=== PATIENT | male | born 1975 | race Caucasian/White ===

== ENCOUNTER 2017-11-21 16:24 | Emergency (ER) | payer OTHER ==
[~2017-11-21] VITALS: Ht 193 cm; Wt 79.4 kg
[2017-11-21 16:53] LABS: ABSOLUTE MONOCYTES 0.3 thou/uL (0.0-1.2); ABSOLUTE NEUTROPHILS 5.4 thou/uL (1.6-8.1); BASOPHILS 0.5 %; EOSINOPHILS 0.2 %; HEMATOCRIT 44.5 % (42.0-52.0); LYMPHOCYTES 14.9 %; MCH 29.8 pg (26.0-34.0); MCHC 33.7 g/dL (28.0-37.0); MCV 88.4 fL (80.0-100.0); MONOCYTES 4.9 %; MPV 8.1 fl. (7.2-11.1); NUCLEATED RBCS 0 /100WBC; PLATELET COUNT* 214 thou/uL (150-400); POLYS 79.5 %; RBC 5.03 mil/uL (4.50-6.00); RDW-CV 13.7 % (10.5-14.5); WBC 6.8 thou/uL (4.0-11.0)
[2017-11-21 16:59] LABS: CALCIUM 9.2 mg/dL (8.5-10.1); POTASSIUM 3.3 mmol/L (3.5-5.1)
[2017-11-21 17:11] LABS: TOTAL BILIRUBIN 2.1 mg/dL (<0.1-1.0); TOTAL PROTEIN 7.1 g/dL (6.4-8.2)
[2017-11-21 17:22] LABS: BE 1.4 mmol/L (-2 to +3); PCO2 VENOUS 36.7 mmHg (41.0-51.0)
[2017-11-21 17:23] LABS: PO2 VENOUS 37.3 mmHg (35.0-45.0)
[2017-11-21] MEDS ORDERED: XANAX 0.5 MG0.5 M1 PO (18:53)
[2017-11-21 19:17] VITALS: BP 118/67
--- NOTE | 2017-11-22 10:28 | EKG ---
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[place] : 1975 Requested By: Rachael Zapata Order Number: [id number] MD: Steve Vicente Measurements Intervals [place] Rate: 62 P: 76 NE: 183 QRS: 86 QRSD: 118 T: 63 QT: 428 QTc: 435 Interpretive Statements Sinus rhythm Probable left atrial enlargement Incomplete right bundle branch block No previous ECG available for comparison Electronically Signed On 11-22-2017 10:28:45 CDT by Steve Vicente [email or web address] <ELECTRONICALLY SIGNED> By: Steve Vicente MD, [facility] 11/22/17 1028 1641 1641 Steve Vicente MD, FACC /EPI
== END 2017-11-21 19:17 | disposition home or self-care (01) ==
LOC: M.ERS 16:24
PROVIDERS: Nurse Practitioner Family
DX: F41.9 Anxiety disorder, unspecified (principal); R42 Dizziness and giddiness; Z88.1 Allergy status to other antibiotic agents

== ENCOUNTER → 2017-12-01 | Outpatient (CLI) | payer OTHER ==
[~2017-12-01] MED LIST: XANAX 0.5 MG0.5 M1 PO
--- NOTE | ~2017-12-01 | 24HR ---
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
--- NOTE | 2017-12-01 14:41 | EXE ---
[place] [address] STRESS ECHOCARDIOGRAM Name: NAILA SANFORD Room: [facility]#: [id number] Admission: 12/01/17 Attend Phys: Noe Rodriguez, Discharge: Date of : 71 Date of Service: 12/01/17 1440 Report #: [id number] THIS REPORT FOR: //name// APPROVED REPORT Study performed: 12/01/2017 11:10:34 Exam: Stress Echocardiogram Indication: Dizziness Patient Location: Out-Patient Stress Nurse: Fay Lynn RN Supervising Physician: Jonah López MD Status: routine Ht: 6 ft 4 in HR: 57 bpm BP: 132/76 mmHg Procedure The patient underwent an Exercise Stress Test using the Barry Protocol. Blood pressure, heart rate, and EKG were monitored. 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 At peak stress, four selected images were obtained and placed side by side with resting images for comparison. Stress Test Details Stress Test: Exercise stress testing was performed using a Barry protocol. HR Resting HR: 57 bpm Max Heart Rate (APMHR): 176 bpm Max HR Achieved: 160 bpm Target HR (85% APMHR): 149 bpm % of APMHR: 90 Recovery HR: 86 bpm HR response to stress: Normal HR response to stress BP Resting BP: 132/76 mmHg Max BP: 167/75 mmHg Recovery BP: 139/74 mmHg ECG Resting ECG: Sinus Rhythm Stress ECG: No ischemic st-t changes Clinical Reason for Termination: Completed protocol, [place] [address] STRESS ECHOCARDIOGRAM Name: NAILA SANFORD Room: [facility]#: [id number] Admission: 12/01/17 Attend Phys: Noe Rodriguez, Discharge: Date of : 71 Date of Service: 12/01/17 1440 Report #: [id number] Exercise duration: 12 min 27 sec Highest Stage Achieved: Stage 4: 4.2 mph at 16% grade. Exercise capacity: 13.77 METs Pre-Stress Echo The resting Echocardiogram showed normal left ventricular contractility with an estimated Ejection Fraction of about 55-60%. Normal wall motion in all segments on baseline images. Post-Stress Echo The stress Echocardiogram showed normal left ventricular contractility with an estimated Ejection Fraction of about >70%. Normal augmentation of wall motion in all segments on post stress images. Conclusion Clinical Response: Non-ischemic Exercise Capacity: Superior Stress ECG Response: Non-ischemic Stress Echo Images: Non-ischemic Other Information Study Quality: Good <ELECTRONICALLY SIGNED> By: Jonah López MD, FACC 12/01/17 1440 144 1440 Jonah López MD, FACC /INF
--- NOTE | 2017-12-16 10:35 | 24HR ---
[place] [address] HOLTER MONITOR REPORT Name: NAILA SANFORD Room: [facility] Quintana#: [id number] Admission: 12/01/17 Attend Phys: Noe Rodriguez, Discharge: Date of : 71 Date of Service: 12/02/17 1047 Report #: [id number] THIS REPORT FOR: //name// 1. sinus rhythm with sinus bradycardia and tachycardia 2. rare pac and pvc 3. no diary submitted Electronically Signed On 12-02-2017 10:47:03 CDT by Steve Vicente By: 1047 1030 Steve Vicente MD, FACC /JW
== END ==
LOC: M.CRD 10:41
DX: R42 Dizziness and giddiness (principal); R07.89 Other chest pain; F41.9 Anxiety disorder, unspecified